=== PATIENT | female | born 1975 | race Caucasian/White ===

== ENCOUNTER 2017-09-12 18:19 | Emergency (ER) | payer BC, OTHER ==
[2017-09-12 18:26] VITALS: BP 106/62
[2017-09-12] MEDS ORDERED: predniSONE TAB* 20 MG PO ONE (18:55)
--- NOTE | 2017-09-12 19:00 | UC ---
Austin Ceron Nikita, scribed for Corrie Deutsch MD on 09/12/17 at 1847 . Skin Complaint HPI - HPI Summary HPI Summary: This patient is a 42 year old F presenting to [facility] with a chief complaint of hives since this morning. The pt reports she took a cold shower and 2 Benadryl which dissolved the hives, but they came back this evening. The CC is described as pruritic and occurring from her axilla to her buttocks and aching. The patient rates the pain 3/10 in severity. Symptoms aggravated by nothing. Symptoms alleviated by Benadryl (taken at 0700 and 1700). Patient reports chills and mid CP (heartburn, began this evening with dinner). Patient denies vomiting, diarrhea, throat swelling, tongue swelling, and difficulty breathing. Hx of hives (1st possibly from wool sweater and 2nd from poison oak). No known food allergies. - History of Current Complaint Chief Complaint: UCAllergicReaction Time Seen by Provider: 09/12/17 18:31 Stated Complaint: HIVES Hx Obtained From: Patient Hx Last Menstrual Period: Mirena IUD Onset/Duration: Sudden Onset, Resolved, Other - 2 episodes (one at 0700 which dissolved with a cold shower and Benadryl and another at 1700) Skin Exposure Onset/Duration: Hours Ago Onset Severity: Mild Current Severity: Mild Pain Intensity: 3 Pain Scale Used: 0-10 Numeric Location: Other - from her axilla to her buttocks Character: Pruritus, Hives Aggravating Factor(s): Nothing Alleviating Factor(s): OTC Meds - Benadryl Associated Signs & Symptoms: Positive: Chest Pain - Patient reports chills and mid CP (heartburn, began this evening with dinner). Patient denies vomiting, diarrhea, throat swelling, tongue swelling, and difficulty breathing. - Allergy/Home Medications Allergies/Adverse Reactions: Allergies Allergy/AdvReac Type Severity Reaction Status Date / Time No Known Allergies Allergy Verified 01/19/15 19:29 Review of Systems Constitutional: Chills Skin: Other - hives ENT: Other - denies throat swelling, tongue swelling Respiratory: Other - denies difficulty breathing Cardiovascular: Chest Pain - mid CP (heartburn); no risk factors for CAD aside from FH: generally healthy, normal cholesterol, non-smoker. Gastrointestinal: Other - denies vomiting, diarrhea, onset of reflux symptoms after eating this evening. Is Patient Immunocompromised?: No All Other Systems Reviewed And Are Negative: Yes PMH/Surg Hx/FS Hx/Imm Hx Endocrine History: Other Other Endocrine History: No DM Cardiovascular History: Other Other Cardiovascular History: No CAD, HTN, HLD Respiratory History: Other Other Respiratory History: No asthma, COPD - Surgical History Surgical History: None - Family History Known Family History: Positive: Cardiac Disease, Other Family History: pacemaker - Social History Alcohol Use: Weekly Substance Use Type: None Smoking Status (MU): Never Smoked Tobacco - Immunization History Most Recent Influenza Vaccination: 08/14/14 Most Recent Tetanus Shot: 07/11/14 Most Recent Pneumonia Vaccination: unknown Physical Exam Triage Information Reviewed: Yes Appearance: Well-Appearing, No Pain Distress Vital Signs: Initial Vital Signs Temp 98.4 F 09/12/17 18:21 Pulse 64 09/12/17 18:21 Resp 18 09/12/17 18:21 BP 106/62 09/12/17 18:21 Pulse Ox 100 09/12/17 18:21 Vital Signs Reviewed: Yes Eyes: Positive: Conjunctiva Clear ENT: Positive: Pharynx normal, TMs normal Neck: Positive: Supple, Nontender, No Lymphadenopathy Respiratory: Positive: Lungs clear, Normal breath sounds Cardiovascular: Positive: RRR, No Murmur Abdomen Description: Positive: Nontender, No Organomegaly Psychological Exam: Normal Skin Exam: Other - large urticarial plaques both axilla, scattered on trunk. Diagnostics - EKG Cardiac Rate: NL - taken at 0828; 66 bpm; normal axis Cardiac Rhythm: Sinus: Normal Ectopy: None ST Segment: Normal Course/Dx - Course Course Of Treatment: prednisone for suppression, discussed use of long acting antihistamine. - Differential Diagnoses - Skin Complaint Differential Diagnoses: Urticaria, Viral Exanthem - Diagnoses Provider Diagnoses: urticaria Discharge - Discharge Plan Condition: Stable Disposition: HOME Prescriptions: Prednisone [Deltasone] 20 mg PO BID #10 tab Patient Education Materials: Urticaria (ED) Referrals: Michelle Gonzalez MD [Primary Care Provider] - Additional Instructions: Begin use of prednisone for suppression of hives, which can come and go for several weeks. Begin use of a long acting antihistamine such as loratidine 10mg once daily ( not potent, but not sedating), fexofenadine 180mg once daily OR cetirazien 10mg once daily (more potent, more sedating.). You can use an H2 denny such as famotidine 20mg once daily --this will decrease stomach acid and also suppress hives. The documentation as recorded by the khushbuibAustin lin Nikita accurately reflects the service I personally performed and the decisions made by me, Corrie Deutsch MD.
== END 2017-09-12 19:12 | disposition home or self-care (01) ==
LOC: UCEAST 18:19
DX: L50.9 Urticaria, unspecified (principal)
CPT/HCPCS: 99212; G0463; J7512

== ENCOUNTER 2019-04-18 16:49 | Emergency (ER) | payer BC ==
[2019-04-18 16:57] VITALS: BP 143/74
== END 2019-04-18 18:11 | disposition left against medical advice (07) ==
LOC: UCEAST 16:49
DX: Z53.21 Procedure and treatment not carried out due to patient leaving prior to being seen by health care provider (principal)

== ENCOUNTER 2019-04-18 19:25 | Emergency (ER) | payer BC ==
[2019-04-18 19:39] VITALS: BP 114/70
--- NOTE | 2019-04-18 20:15 | UC ---
Throat Pain/Nasal Eddie HPI - HPI Summary HPI Summary: 43-year-old woman comes in with a chief complaint of 3 weeks of upper respiratory tract infection symptoms. Been having some runny nose initially started with a sore throat. Sore throats gone but now the rhinorrhea continues to including having some blood in her yellow-green rhinorrhea. Also feels fatigued. Activity makes the fatigue worse. Not being active makes the fatigue less. Does not feel like she has any chest congestion or wheezing. - History of Current Complaint Chief Complaint: UCGeneralIllness Stated Complaint: SINUSES,COUGH,FATIGUE Time Seen by Provider: 04/18/19 20:08 Hx Last Menstrual Period: 03/21/19 Pain Intensity: 3 - Allergies/Home Medications Allergies/Adverse Reactions: Allergies Allergy/AdvReac Type Severity Reaction Status Date / Time No Known Allergies Allergy Verified 04/18/19 19:39 PMH/Surg Hx/FS Hx/Imm Hx Previously Healthy: Yes - Surgical History Surgical History: None - Family History Known Family History: Positive: Cardiac Disease, Other Family History: pacemaker - Social History Alcohol Use: None Substance Use Type: None Smoking Status (MU): Never Smoked Tobacco - Immunization History Most Recent Influenza Vaccination: 08/14/14 Most Recent Tetanus Shot: 07/11/14 Most Recent Pneumonia Vaccination: unknown Review of Systems All Other Systems Reviewed And Are Negative: Yes Constitutional: Positive: Fatigue Skin: Positive: Negative Eyes: Positive: Negative ENT: Positive: Sore Throat, Nasal Discharge, Sinus Congestion, Sinus Pain/ Tenderness Respiratory: Positive: Other - see hpi Cardiovascular: Positive: Negative Gastrointestinal: Positive: Negative Motor: Positive: Negative Neurovascular: Positive: Negative Musculoskeletal: Positive: Negative Neurological: Positive: Negative Psychological: Positive: Negative Is Patient Immunocompromised?: No Physical Exam Triage Information Reviewed: Yes Appearance: No Pain Distress, Well-Nourished, Ill-Appearing - mild Vital Signs: Initial Vital Signs Temp 98.1 F 04/18/19 19:35 Pulse 82 04/18/19 19:35 Resp 18 04/18/19 19:35 BP 114/70 04/18/19 19:35 Pulse Ox 96 04/18/19 19:35 Vital Signs Reviewed: Yes Eye Exam: Normal Eyes: Positive: Conjunctiva Clear ENT: Positive: Pharyngeal erythema - mild, TMs normal, Sinus tenderness - maxillary. Negative: Tonsillar swelling, Tonsillar exudate Neck: Positive: Supple Respiratory: Positive: Lungs clear, Normal breath sounds, No respiratory distress Cardiovascular: Positive: RRR Musculoskeletal Exam: Normal Musculoskeletal: Positive: Strength Intact, ROM Intact Neurological Exam: Normal Neurological: Positive: Alert, Muscle Tone Normal Psychological Exam: Normal Psychological: Positive: Age Appropriate Behavior Skin Exam: Normal Throat Pain/Nasal Course/Dx - Differential Dx/Diagnosis Provider Diagnosis: Sinusitis Discharge - Sign-Out/Discharge Documenting (check all that apply): Patient Departure All imaging exams completed and their final reports reviewed: No Studies - Discharge Plan Condition: Stable Disposition: HOME Prescriptions: Amoxicillin/Clavulanate TAB* [Augmentin TAB 875*] 875 mg PO BID #20 tab Patient Education Materials: Sinusitis (ED) Referrals: Kirstie Lovelace MD [Primary Care Provider] - Additional Instructions: FOLLOW UP WITH YOUR DOCTOR IF NOT COMPLETELY IMPROVED. GET RECHECKED SOONER IF YOUR CONDITION WORSENS OR ANY QUESTIONS OR CONCERNS. - Billing Disposition and Condition Condition: STABLE Disposition: Home
== END 2019-04-18 20:15 | disposition home or self-care (01) ==
LOC: UCEAST 19:25
DX: J32.9 Chronic sinusitis, unspecified (principal); J02.9 Acute pharyngitis, unspecified
CPT/HCPCS: 99212; G0463

== ENCOUNTER 2019-07-05 14:55 | Emergency (ER) | payer BC ==
[2019-07-05 15:24] VITALS: BP 105/72
--- NOTE | 2019-07-05 16:11 | UC ---
Skin Complaint HPI - HPI Summary HPI Summary: Patient is a healthy 44-year-old female here with a rash. Patient woke up this morning with a generalized rash. Patient's rash is mildly itchy and nonpainful. Patient took Benadryl this morning with little relief. Patient has been exposed to her son who is been sick at home with sore throat, high fever. Patient finished an antibiotic yesterday she was taking for a UTI. Patient cannot remember the name of the antibiotic. Patient has no sore throat , fever, nasal congestion, vomiting, diarrhea, rectal bleeding, vaginal bleeding , dental bleeding. Medications reviewed - History of Current Complaint Chief Complaint: UCGeneralIllness Time Seen by Provider: 07/05/19 15:53 Stated Complaint: RASH Hx Obtained From: Patient Hx Last Menstrual Period: spotting everyday on new OBC Onset/Duration: Sudden Onset Pain Intensity: 2 - Allergy/Home Medications Allergies/Adverse Reactions: Allergies Allergy/AdvReac Type Severity Reaction Status Date / Time No Known Allergies Allergy Verified 07/05/19 15:24 Home Medications: Home Medications Levonorgestrel-Ethin Estradiol [Carina] 1 tab PO DAILY 07/05/19 [History Confirmed 07/05/19] PMH/Surg Hx/FS Hx/Imm Hx Previously Healthy: Yes - Surgical History Surgical History: None - Family History Known Family History: Positive: Cardiac Disease, Other, Non-Contributory Family History: pacemaker - Social History Alcohol Use: Weekly Substance Use Type: None Smoking Status (MU): Never Smoked Tobacco - Immunization History Most Recent Influenza Vaccination: 08/14/14 Most Recent Tetanus Shot: 07/11/14 Most Recent Pneumonia Vaccination: unknown Review of Systems All Other Systems Reviewed And Are Negative: Yes Constitutional: Negative: Fever, Chills Skin: Positive: Rash Eyes: Negative: Eye Redness ENT: Negative: Epistaxis, Dental Pain, Sore Throat, Ear Ache, Nasal Discharge Respiratory: Negative: Shortness Of Breath, Cough Cardiovascular: Negative: Palpitations, Chest Pain Gastrointestinal: Negative: Abdominal Pain, Vomiting, Diarrhea Genitourinary: Negative: Dysuria, Hematuria Neurological: Negative: Headache Physical Exam - Summary Physical Exam Summary: Vital Signs Reviewed: Yes A+Ox3, no distress Eyes: Conjunctiva Clear, PERRL. EOM intact and full ENT: Hearing grossly normal TM x 2 clear, moist, uvula midline, no exudate, no erythema Neck: Positive: Supple Respiratory: Positive: No respiratory distress, No accessory muscle use + CTA throughout no w/r Cardiovascular: RRR nl s1, s2 no m/r CBT <2 sec abd soft + BS nt/nd no guarding, no distension Musculoskeletal Exam: BREWSTER x 4 without difficulty Strength Intact, ROM Intact Neurological: Positive: Alert, + sensation throughout Psychological: Positive: Normal Response To Family Skin: Diffuse rash on all extremities and trunk. Rashes are pinpoint erythematous papules that are blanching. No oral lesions. No lesions on the palms or soles. Triage Information Reviewed: Yes Vital Signs: Initial Vital Signs Temp 98.4 F 07/05/19 15:17 Pulse 65 07/05/19 15:17 Resp 16 07/05/19 15:17 BP 105/72 07/05/19 15:17 Pulse Ox 100 07/05/19 15:17 Course/Dx - Course Course Of Treatment: Patient is here with a generalized, pruritic rash. Patient's rash is not petechial in nature. Patient has no oral lesions and is clinically well- appearing with no fever, no tachycardia. Patient is likely suffering from a viral exanthem after being exposed from her son versus a drug eruption. Patient has no other symptoms consistent with Dorsey-Yobany syndrome or dress. Patient was given likely discussion on return percussions to the emergency department and was well aware of what to look for. - Differential Diagnoses - Skin Complaint Differential Diagnoses: Contact Dermatitis, Drug Rash, Eczema, Dorsey-Yobany Syndrome, Viral Exanthem - Diagnoses Provider Diagnosis: Generalized rash Discharge - Sign-Out/Discharge Documenting (check all that apply): Patient Departure All imaging exams completed and their final reports reviewed: No Studies - Discharge Plan Condition: Stable Disposition: HOME Patient Education Materials: Acute Rash (ED) Referrals: Kirstie Lovelace MD [Primary Care Provider] - Additional Instructions: Please go to the emergency department if you have rash in her mouth, any sloughing of skin (like the picture I showed you), fever, headache, bleeding. You can use Benadryl as needed for itching - Billing Disposition and Condition Condition: STABLE Disposition: Home
== END 2019-07-05 16:19 | disposition home or self-care (01) ==
LOC: UCEAST 14:55
DX: R21 Rash and other nonspecific skin eruption (principal)
CPT/HCPCS: 99211; G0463

== ENCOUNTER 2019-08-13 18:50 | Emergency (ER) | payer BC ==
[2019-08-13 19:12] VITALS: BP 111/73
--- NOTE | 2019-08-13 19:34 | UC ---
Skin Complaint HPI - HPI Summary HPI Summary: concerned she may have scabies---itchy rash that is worse at night--works in a [employer] and has a new intimant partner-who does not have a similar rash - History of Current Complaint Chief Complaint: UCSkin Time Seen by Provider: 08/13/19 19:19 Stated Complaint: RASH Hx Obtained From: Patient Hx Last Menstrual Period: control ?: No Onset/Duration: Gradual Onset, Lasting Weeks - 8, Still Present Timing: Constant Pain Intensity: 0 Pain Scale Used: 0-10 Numeric Location: Diffuse Character: Redness Aggravating Factor(s): Nothing Alleviating Factor(s): Nothing Associated Signs & Symptoms: Positive: Negative - Allergy/Home Medications Allergies/Adverse Reactions: Allergies Allergy/AdvReac Type Severity Reaction Status Date / Time Sulfa (Sulfonamide Allergy Rash Verified 08/13/19 19:13 Antibiotics) PMH/Surg Hx/FS Hx/Imm Hx Previously Healthy: Yes - Surgical History Surgical History: None - Family History Known Family History: Positive: Cardiac Disease, Other, Non-Contributory Family History: pacemaker - Social History Occupation: Employed Full-time Lives: With Family Alcohol Use: Weekly Substance Use Type: None Smoking Status (MU): Never Smoked Tobacco - Immunization History Most Recent Influenza Vaccination: 08/14/14 Most Recent Tetanus Shot: 07/11/14 Most Recent Pneumonia Vaccination: unknown Review of Systems All Other Systems Reviewed And Are Negative: Yes Constitutional: Positive: Negative Skin: Positive: Rash Eyes: Positive: Negative ENT: Positive: Negative Respiratory: Positive: Negative Cardiovascular: Positive: Negative Gastrointestinal: Positive: Negative Genitourinary: Positive: Negative Motor: Positive: Negative Neurovascular: Positive: Negative Musculoskeletal: Positive: Negative Neurological: Positive: Negative Psychological: Positive: Negative Is Patient Immunocompromised?: No Physical Exam Triage Information Reviewed: Yes Appearance: Well-Appearing, No Pain Distress, Well-Nourished Vital Signs: Initial Vital Signs Temp 99.3 F 08/13/19 19:06 Pulse 75 08/13/19 19:06 Resp 16 08/13/19 19:06 BP 111/73 08/13/19 19:06 Pulse Ox 99 08/13/19 19:06 Vital Signs Reviewed: Yes Eye Exam: Normal Eyes: Positive: Conjunctiva Clear ENT Exam: Normal ENT: Positive: Normal ENT inspection, Hearing grossly normal. Negative: Trismus , Muffled voice, Hoarse voice Dental Exam: Normal Neck exam: Normal Neck: Positive: Supple, Nontender Respiratory Exam: Normal Respiratory: Positive: Chest non-tender, No respiratory distress, No accessory muscle use Cardiovascular Exam: Normal Cardiovascular: Positive: RRR, Pulses Normal, Brisk Capillary Refill Musculoskeletal Exam: Normal Musculoskeletal: Positive: Strength Intact, ROM Intact, No Edema Neurological Exam: Normal Neurological: Positive: Alert, Muscle Tone Normal Psychological Exam: Normal Skin: Positive: Other - patches of itchy red rash-- Course/Dx - Course Course Of Treatment: will treat with premetherin followed by steroid cream---follow with pcp - Diagnoses Provider Diagnosis: Scabies Discharge ED - Sign-Out/Discharge Documenting (check all that apply): Patient Departure All imaging exams completed and their final reports reviewed: No Studies - Discharge Plan Condition: Stable Disposition: HOME Prescriptions: Permethrin 5% CREAM* 1 applic TOPICAL SEE INSTRUCTIONS #60 gm predniSONE [Prednisone 20 MG TAB] 20 mg PO DAILY #12 tablet Patient Education Materials: Diphenhydramine (By mouth), Contact Dermatitis (ED ) Referrals: Kirstie Lovelace MD [Primary Care Provider] - If Needed - Billing Disposition and Condition Condition: STABLE Disposition: Home
== END 2019-08-13 19:50 | disposition home or self-care (01) ==
LOC: UCEAST 18:50
DX: R21 Rash and other nonspecific skin eruption (principal); Z88.2 Allergy status to sulfonamides
CPT/HCPCS: 99212; G0463

== ENCOUNTER 2019-11-18 18:50 | Emergency (ER) | payer BC ==
[2019-11-18 18:58] VITALS: BP 131/87
--- NOTE | 2019-11-18 19:22 | UC ---
Complaint Female HPI - HPI Summary HPI Summary: patient has some pelvic pressure-odorous and cloudy for 1 week--thinks she may have a uti as this has happened before and it turned in to a uti----no vaginal discharge - History Of Current Complaint Chief Complaint: UCGU Stated Complaint: BURNING URINATION Time Seen by Provider: 11/18/19 18:53 Hx Obtained From: Patient Hx Last Menstrual Period: on control ?: No Onset/Duration: Sudden Onset, Lasting Weeks - 1, Still Present Timing: Constant Pain Intensity: 3 Pain Scale Used: 0-10 Numeric Aggravating Factor(s): Nothing Associated Signs And Symptoms: Positive: Negative - Allergies/Home Medications Allergies/Adverse Reactions: Allergies Allergy/AdvReac Type Severity Reaction Status Date / Time Sulfa (Sulfonamide Allergy Rash Verified 11/18/19 18:58 Antibiotics) PMH/Surg Hx/FS Hx/Imm Hx Previously Healthy: Yes - Surgical History Surgical History: None - Family History Known Family History: Positive: Cardiac Disease, Other, Non-Contributory Family History: pacemaker - Social History Occupation: Employed Full-time Lives: With Family Alcohol Use: Daily Substance Use Type: None Smoking Status (MU): Never Smoked Tobacco - Immunization History Most Recent Influenza Vaccination: 08/14/14 Most Recent Tetanus Shot: 07/11/14 Most Recent Pneumonia Vaccination: unknown Review of Systems All Other Systems Reviewed And Are Negative: Yes Constitutional: Positive: Negative Skin: Positive: Negative Eyes: Positive: Negative ENT: Positive: Negative Respiratory: Positive: Negative Cardiovascular: Positive: Negative Gastrointestinal: Positive: Negative Genitourinary: Positive: Other - odor and cloudy urine Motor: Positive: Negative Neurovascular: Positive: Negative Musculoskeletal: Positive: Negative Neurological: Positive: Negative Psychological: Positive: Negative Is Patient Immunocompromised?: No Physical Exam Triage Information Reviewed: Yes Appearance: Well-Appearing, No Pain Distress, Well-Nourished Vital Signs: Initial Vital Signs Temp 97.5 F 11/18/19 18:55 Pulse 69 11/18/19 18:55 Resp 16 11/18/19 18:55 BP 131/87 11/18/19 18:55 Pulse Ox 100 11/18/19 18:55 Vital Signs Reviewed: Yes Eye Exam: Normal Eyes: Positive: Conjunctiva Clear ENT Exam: Normal ENT: Positive: Normal ENT inspection, Hearing grossly normal. Negative: Trismus , Muffled voice, Hoarse voice Dental Exam: Normal Neck exam: Normal Neck: Positive: Supple, Nontender, No Lymphadenopathy Respiratory Exam: Normal Respiratory: Positive: Chest non-tender, Lungs clear, Normal breath sounds, No respiratory distress, No accessory muscle use Cardiovascular Exam: Normal Cardiovascular: Positive: RRR, No Murmur, Pulses Normal, Brisk Capillary Refill Abdominal Exam: Normal Abdomen Description: Positive: Nontender, No Organomegaly, Soft. Negative: CVA Tenderness (R), CVA Tenderness (L), Distended, McBurney's Point Tenderness Bowel Sounds: Positive: Present Musculoskeletal Exam: Normal Musculoskeletal: Positive: Strength Intact, ROM Intact, No Edema Neurological Exam: Normal Neurological: Positive: Alert, Muscle Tone Normal Psychological Exam: Normal Skin Exam: Normal Diagnostics - Laboratory Lab Results: ua wnl sg 1.025 Complaint Female Dx - Course Course Of Treatment: encourage fluids, return for worsening or continuing symptoms- - Differential Dx/Diagnosis Provider Diagnosis: Foul smelling urine Discharge ED - Sign-Out/Discharge Documenting (check all that apply): Patient Departure All imaging exams completed and their final reports reviewed: No Studies - Discharge Plan Condition: Stable Disposition: HOME Patient Education Materials: Dehydration (ED), Abdominal Pain (ED) Referrals: Kirstie Lovelace MD [Primary Care Provider] - 3 Days - Billing Disposition and Condition Condition: STABLE Disposition: Home
== END 2019-11-18 19:30 | disposition home or self-care (01) ==
LOC: UCEAST 18:50
DX: R82.998 Other abnormal findings in urine (principal)
CPT/HCPCS: 81003; 84702; 99211; G0463

== ENCOUNTER 2020-02-06 14:10 | Emergency (ER) | payer BC ==
--- OUTSIDE RECORDS SUMMARY | 2020-02-06 14:17 | XMS REPORT | Summary of Care ---
:[address] [facility] Address [address] [place] [address] Care Team Providers Name Role Phone Kirstie Lovelace Primary Care Provider Reason for Visit Reason Comments Physical pap 10/11/17, mammo 08/30/18, no dexa or colonoscopy Gynecologic Exam Encounter Details Date Type Department Care Team Description 01/26/2020 Office Visit [facility] Kirstie Lovelace MD Routine general medical examination at a health care facility (Primary Dx); Medicine [address] Encounter for screening breast examination; [address] [place] [address] Encounter for contraceptive management, unspecified type; [place] [address] Need for vaccination; [phone] Screening mammogram, encounter for; (Fax) Encounter for gynecological examination without abnormal finding Allergies Active Allergy Reactions Severity Noted Date Comments No Known Drug Allergy Other 01/18/2008 Sulfa Antibiotics Dermatologic Reaction 11/21/2019 Rash on entire body documented as of this encounter (statuses as of 01/26/2020) Medications Medication Sig Dispensed Refills Start Date End Date Status Levonorgestrel-Ethi Take 1 Tab 28 Tab 11 01/26/2020 Active nyl Estrad by mouth (TETE) 90-20 DAILY. MCG Oral TabIndications: Encounter for contraceptive management, unspecified type Levonorgestrel-Ethi Take 1 Tab 28 Tab 6 06/26/2019 Discontinued nyl Estrad by mouth 0 (Reorder) (TETE) 90-20 DAILY. MCG Oral TabIndications: Encounter for contraceptive management, unspecified type documented as of this encounter (statuses as of 01/26/2020) Active Problems Problem Noted Date Encounter for contraceptive management 03/29/2018 Depression 05/21/2015 Overview: On celexa- 3 weeks ( 05/06) - Prescribed by Leah Villalobos NP documented as of this encounter (statuses as of 01/26/2020) Immunizations Name Administration Dates Next Due Influenza (IM) Preservative Free 09/18/2013 TDAP Vaccine 01/26/2020 documented as of this encounter Social History Tobacco Use Types Packs/Day Years Used Date Never Smoker Smokeless Tobacco: Never Used Tobacco Cessation: Counseling Given: No Alcohol Use Drinks/Week oz/Week Comments Yes 0 Standard drinks or equivalent 0.0 OCCAS Sex Assigned at Date Recorded Not on file Travel History Travel Start Travel End [place] 12/31/2019 01/12/2020 documented as of this encounter Last Filed Vital Signs Vital Sign Reading Time Taken Comments Blood Pressure 140/86 01/26/2020 10:54 AM EST Pulse 61 01/26/2020 10:54 AM EST Temperature 36.6 01/26/2020 10:54 AM EST C (97.8 F) Respiratory Rate - - Oxygen Saturation 99% 01/26/2020 10:54 AM EST Inhaled Oxygen Concentration - - Weight 63 kg (138 lb 14.4 oz) 01/26/2020 10:54 AM EST Height 164.5 cm (5' 4.75") 01/26/2020 10:54 AM EST Body Mass Index 23.29 01/26/2020 10:54 AM EST documented in this encounter Patient Instructions Patient InstructionsKirstie Lovelace MD - 01/26/2020 11:[facility] 1. Take 1000- mg of Calcium/day divided dose and with a meal (better absorbed with fat ( calcium best out of The diet - Dairy - [place] ( in the can best) sardines) some vegetables -For example cabbage and partcularly bok gomes 2. Take 800- IU Vit D in the form of cholecalficerol (D3). Avoid ergocalciferol (not absorbed well) 3. Weight bearing exercize (walking, etc.) and strength training 4. Daily exposure to sunlight (though not enought to turn skin pink) 5. I recommend visiting the following web site for more information on Vit D supplementation http://www.vitaminZeta Interactive.[employer]/vitaminDPharmacology.shtml documented in this encounter Progress Notes Kirstie Lovelace MD - 01/26/2020 11:20 AM EST PATIENT: Pretty Temple DATE: 01/26/2020 Pretty Temple is a 44-y.o. female presents for routine physical exam and Also, she has additional complaints of . Patient Active Problem List Diagnosis ? Depression ? Encounter for contraceptive management Exercize yes No SON. No cardiopulmonary symptoms as dyspnea, cough. palpitations , or chest pain on exertion. No upper or lower GI complaints as heartburn, abdominal pain, change in bowel habits, blackor bloody stools. No urinary tract symptoms or incontinence. No symptoms as nocturia, discharge No bruising/ bleeding. No neurological complaints as dysphagia, imbalance, vertigo , focal weakness. No insomnia.+ Rested after nights sleep. No depression. Does not stop breathing at night. Current Outpatient Medications Medication Sig ? Levonorgestrel-Ethinyl Estrad (TETE) 90-20 MCG Oral Tab Take 1 Tab by mouth DAILY. No current facility-administered medications for this visit. Social History Socioeconomic History ? Marital status: Single Spouse name: Not on file ? Number of children: Not on file ? Years of education: Not on file ? Highest education level: Not on file Occupational History ? Not on file Social Needs ? Financial resource strain: Not on file ? Food insecurity Worry: Not on file Inability: Not on file ? Transportation needs Medical: Not on file Non-medical: Not on file Tobacco Use ? Smoking status: Never Smoker ? Smokeless tobacco: Never Used Substance and Sexual Activity ? Alcohol use: Yes Alcohol/week: 0.0 standard drinks Comment: OCCAS ? Drug use: Not on file ? Sexual activity: Not on file Lifestyle ? Physical activity Days per week: Not on file Minutes per session: Not on file ? Stress: Not on file Relationships ? Social connections Talks on phone: Not on file Gets together: Not on file Attends gnosticism service: Not on file Active member of club or organization: Not on file Attends meetings of clubs or organizations: Not on file Relationship status: Not on file ? Intimate partner violence Fear of current or ex partner: Not on file Emotionally abused: Not on file Physically abused: Not on file Forced sexual activity: Not on file Other Topics Concern ? Back Care Not Asked ? Bike Helmet Not Asked ? Blood Transfusions Not Asked ? Caffeine Concern Not Asked ? Exercise Not Asked ? Hobby Hazards Not Asked ? International Travel Not Asked ? Service Not Asked ? Occupational Exposure Not Asked ? Seat Belt Not Asked ? Self-Exams Not Asked ? Sleep Concern Not Asked ? Special Diet Not Asked ? Stress Concern Not Asked ? 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 Hypertension Unknown MOTHER ? High Cholesterol Unknown FATHER ? Stroke Unknown grandfather ? Heart Unknown [place] grandfather ? Breast Cancer, additional onset Maternal Aunt OBJECTIVE: BP 140/86 | Pulse 61 | Temp 97.8 F (36.6 C) | Ht 5' 4.75" (1.645 m) | Wt 138 lb 14.4 oz (63 kg) | LMP (LMP Unknown) | SpO2 99% | BMI 23.29 kg/m Gen well Heent: ears TM and canals normal eyes Perrl; EOMI oroph-wnl Neck- no JVD,thyromegaly, bruit or lymphademopathy No supraclavicular, axillary or inguinal lymphadenopathy Lungs-clear to auscultation CV RRR no Murmur, gallop or clilck Breasts-no masses or diimpling (examined supine and sitting) Abd. nontender; no organomegaly, abnormal pulsations , bowel sounds normoactive urethra/ vul/vag neg; cervix wnl; uterus wnl, adnexa-unabl eehin prep Rectal no mass heme ANus no path Ext-no edema; rash, DP +2 skin- no rashes or suspicious lesions Neuro- intellect intact; CN II.XII intact; U&LE-strength wnl gait nl A/P ICD-9-CM ICD-10-CM 1. Routine general medical examination at a health care facility V70.0 Z00.00 CANCELED: CBC WITH DIFFERENTIAL CANCELED: THYROID STIMULATING HORMONE CANCELED: LIPID PROFILE CANCELED: BASIC METABOLIC PANEL 2. Encounter for screening breast examination V76.10 Z12.39 3. Encounter for contraceptive management, unspecified type V25.9 Z30.9 Levonorgestrel-Ethinyl Estrad (TETE) 90-20 MCG Oral Tab CANCELED: CBC WITH DIFFERENTIAL CANCELED: THYROID STIMULATING HORMONE CANCELED: LIPID PROFILE CANCELED: BASIC METABOLIC PANEL 4. Need for vaccination V05.9 Z23 OR TET, DIP & ACEL PERTUSSIS(DX Z23) 5. Screening mammogram, encounter for V76.12 Z12.31 MAMMO SCREENING TOMOSYNTHESIS BILATERAL 6. Encounter for gynecological examination without abnormal finding V72.31 Z01.419 PAP SMEAR THINPREP AND HPV Breast self-exam and bone health recommendations were made Chief Complaint Patient presents with ? Physical pap 10/11/17, mammo 08/30/18, no dexa or colonoscopy ? Gynecologic Exam Mammo-- ordered DT PAP Today Patient Instructions Bone health: 1. Take 1000- mg of Calcium/day divided dose and with a meal ( better absorbed with fat ( calcium best out of The diet - Dairy - [place] ( in the can best) sardines) some vegetables -For example cabbage and partcularly bok gomes 2. Take 800- IU Vit D in the form of cholecalficerol (D3). Avoid ergocalciferol (not absorbed well) 3. Weight bearing exercize (walking, etc.) and strength training 4. Daily exposure to sunlight (though not enought to turn skin pink) 5. I recommend visiting the following web site for more information on Vit D supplementation http://www.vitaminZeta Interactive.[employer]/vitaminDPharmacology.shtml Author: Kirstie Lovelace MD documented in this encounter Plan of Treatment Name Type Priority Associated Diagnoses Order Schedule MAMMO SCREENING Imaging Routine Screening mammogram, Expected: TOMOSYNTHESIS BILATERAL encounter for 01/26/2020, Expires: 04/25/2021 PAP SMEAR THINPREP AND Lab Routine Encounter for Ordered: 01/26/2020 HPV gynecological examination without abnormal finding Health Maintenance Due Date Last Done Comments DTaP/Tdap/Td Vaccines ( - 1985 Tdap) LIPID DISORDER SCREENING 01/26/2018 01/26/2013, 01/19/2008 MAMMOGRAM (SCREENING) 08/30/2019 08/30/2018 DEPRESSION SCREENING 06/26/2020 06/26/2019 PAP SMEAR 10/11/2020 10/11/2017, 01/24/2013, 01/24/2013, Additional history exists INFLUENZA VACCINE (#1) 2021 09/18/2013 Postponed from 07/23/2019 (Patient refused) HEPATITIS A IMMUNIZATION Aged Out No longer eligible SERIES based on patient's age to complete this topic HPV IMMUNIZATION SERIES Aged Out No longer eligible based on patient's age to complete this topic MENINGOCOCCAL VACCINE IMM Aged Out No longer eligible based on patient's age to complete this topic PNEUMOCOCCAL 0-64 YRS Aged Out No longer eligible based on patient's age to complete this topic documented as of this encounter Goals Goal Patient Goal Associated Recent Patient-Stated? Author Type Problems Progress Depression Depression No dena Lovelace (PHQ-9) MD Kirstie total score < 5 Note: This is an individualized treatment (depression) goal for Pretty Carlos: Displayed above is your goal for a depression screening (PHQ-9) score that would indicate good control of your depression. Keep a regular sleep schedule Lifestyle No Kirstie Lovelace MD Note: This is an individualized lifestyle goal for Pretty Carlos: Please maintain a regular sleep schedule. This may help with some symptoms of depression. Take all prescribed medications as directed Self-management No Kirstie Lovelace MD Note: This is an individualized self-management goal for Pretty Carlos: Please take all prescribed medications as directed. 1. Do not skip doses. If you cannot afford your medications, talk with your doctor. 2. Use a pill reminder system such as a pill box if needed. Your pharmacist can help you with this. 3. Contact your Pharmacy 5 days before your medication runs out. If you cannot take your medications for any reasons, talk with your doctor. 4. Please bring all of your medication bottles and inhalers (or a list of all your medications/inhalers) with you to every visit. Potential barriers to meeting all of your care plan goals will continue to be addressed on an ongoing basis. documented as of this encounter Results Not on filedocumented in this encounter Visit Diagnoses Diagnosis Encounter for contraceptive management, unspecified type Encounter for screening breast examination Need for vaccination Need for prophylactic vaccination and inoculation against unspecified single disease documented in this encounter Insurance Payer Benefit Plan / Subscriber ID Effective Dates Phone Address Type Group [employer] [id number] 2017-Present [employer] PPO Guarantor Name Account Type Relation to Date of Phone Billing Address Patient Pretty Temple Personal/Famil 1975 [address] [phone] [place], [place] (Work) [id number] documented as of this encounter
--- NOTE | 2020-02-06 14:19 | UC ---
Cardiac HPI - HPI Summary HPI Summary: 44 yo female presents with chest pain and feeling short of breath. She tells me that this morning around 0600 she woke up and felt substernal chest pain that was mild and feeling that she cannot take a deep breath. She went to work and while walking around noted increased SOB and ENCINAS - then noticed some pain in the middle of her shoulder blades. These symptoms have been persistent until now. Present at rest. She has not taken anything OTC for her symptoms. Denies recent illness, headache, dizziness, abdominal pain, n/v, dysuria. Denies hx of cardiac or pulm issues. She returned via plane from [place] on 01/12. No known exposure to positive COVID. She does not smoke. - History of Current Complaint Stated Complaint: SHORT OF BREATH CHEST TIGHTNESS Time Seen by Provider: 02/06/20 14:18 Hx Obtained From: Patient Hx Last Menstrual Period: on control Onset/Duration: Sudden Onset Initial Severity: Mild Current Severity: Mild Pain Intensity: 3 - Allergy/Home Medications Allergies/Adverse Reactions: Allergies Allergy/AdvReac Type Severity Reaction Status Date / Time Sulfa (Sulfonamide Allergy Rash Verified 02/06/20 18:30 Antibiotics) Home Medications: Home Medications Levonorgestrel-Ethin Estradiol [Carina 90-20 Mcg Tablet] 1 tab PO DAILY [History Confirmed 02/06/20] Ibuprofen TAB* [Advil TAB*] 400 mg PO Q6HR PRN 02/06/20 [History Confirmed 02/05] PMH/Surg Hx/FS Hx/Imm Hx - Additional Past Medical History Additional PMH: None - Surgical History Surgical History: None - Family History Known Family History: Positive: Cardiac Disease Family History: pacemaker - Social History Occupation: Employed Full-time Lives: With Family Alcohol Use: Daily Substance Use Type: None Smoking Status (MU): Never Smoked Tobacco - Immunization History Most Recent Influenza Vaccination: 08/14/14 Most Recent Tetanus Shot: 07/11/14 Most Recent Pneumonia Vaccination: unknown Review of Systems All Other Systems Reviewed And Are Negative: No Constitutional: Positive: Negative Skin: Positive: Negative Eyes: Positive: Negative ENT: Positive: Negative Respiratory: Positive: Shortness Of Breath Cardiovascular: Positive: Chest Pain Gastrointestinal: Positive: Negative Genitourinary: Positive: Negative Neurological/Mental Status: Positive: Negative Psychological: Positive: Negative Physical Exam - Summary Physical Exam Summary: GENERAL: NAD. WDWN. No pain distress. SKIN: No rashes, sores, or open wounds. HEENT: Head: AT/NC Eyes: PERRLA. EOM intact. Conjunctiva clear without inflammation or discharge. Ears: Hearing grossly normal. TMs intact, no bulging, erythema, or edema. Nose: Nasal mucosa pink and moist. NTTP maxillary and frontal sinus. Throat: Posterior oropharynx without exudates, erythema, or tonsillar enlargement. Uvula midline. NECK: Supple. Nontender. No lymphadenopathy. CHEST: CTAB. No r/r/w. No accessory muscle use. Breathing comfortably and in no distress. CV: RRR. Pulses intact. Brisk cap refill. ABDOMEN: Soft. NTTP. No distention or guarding. No CVA tenderness. Bowel sounds present NEURO: Alert. PSYCH: Age appropriate behavior. Triage Information Reviewed: Yes Vital Signs: Vital Signs: Temp Pulse Resp BP Pulse Ox 99.9 F 59 16 138/88 100 02/06/20 14:39 02/06/20 14:39 02/06/20 14:39 02/06/20 14:39 02/06/20 14:39 Vital Signs Reviewed: Yes Diagnostics - EKG Summary of EKG Findings: 60bpm NSR. No STEMI as read by Dr. Newton. - Assessment/Plan Course Of Treatment: EKG as above. She had recent plane travel and takes OBC with ENCINAS/SOB and chest pain - concern for PE vs ACS today. Recommended pt go to ED for further eval - she was agreeable to this, but declined ambulance transfer. - Clinical Impression Provider Diagnosis: Chest pain, SOB (shortness of breath) Discharge ED - Sign-Out/Discharge Documenting (check all that apply): Patient Departure All imaging exams completed and their final reports reviewed: No Studies - Discharge Plan Condition: Stable Disposition: HOME-RECOMMEND TO ED Referrals: Kirstie Lovelace MD [Primary Care Provider] - Additional Instructions: Please go to the ER for further evaluation of your chest pain and shortness of breath with recent travel - Billing Disposition and Condition Condition: STABLE Disposition: Home-Recommend to ED - Attestation Statements Provider Attestation: This patient was not sen by me. I was available for consult Chart reviewed JLD My shift ended at 1430
[2020-02-06 14:48] VITALS: BP 138/88
== END 2020-02-06 15:00 | disposition home health service (06) ==
LOC: UCEAST 14:10
DX: R06.02 Shortness of breath (principal); R07.9 Chest pain, unspecified; Z88.2 Allergy status to sulfonamides
CPT/HCPCS: 93005; 99211; G0463

== ENCOUNTER 2020-02-06 15:34 | Emergency (ER) | payer BC ==
[2020-02-06 17:24] LABS: ABS Basophils 0.1 10^3/ul (0-0.2); ABS Eosinophils 0.1 10^3/ul (0-0.6); ABS Lymphocytes 2.1 10^3/ul (1.0-4.8); ABS Monocytes 0.5 10^3/ul (0-0.8); ABS Neutrophils 4.5 10^3/ul (1.5-7.7); Eosinophil % 1.2 %; Hematocrit 36 % (35-47); Hemoglobin 12.3 g/dL (12.0-16.0); Mean Corpuscular HGB Conc 34 g/dL (31-36); Mean Corpuscular Hemoglobin 31 pg (27-31); Mean Corpuscular Volume 90 fL (80-97); Mean Platelet Volume 9.4 fL (7.4-10.4); Platelet Count 201 10^3/uL (150-450); Red Blood Count 3.97 10^6 /uL (3.70-4.87); Red Cell Distribution Width 13 % (10-15); White Blood Count 7.2 10^3/uL (3.5-10.8)
[2020-02-06 17:43] LABS: ALT 12 U/L (7-52); AST 15 U/L (13-39); Albumin 3.8 g/dL (3.2-5.2); Albumin/Globulin Ratio 1.2 (1-3); Alkaline Phosphatase 55 U/L (34-104); Anion Gap 7 mmol/L (2-11); BUN/Creatinine Ratio 20.8 (8-20); Blood Urea Nitrogen 21 mg/dL (6-24); CO2 Carbon Dioxide 28 mmol/L (22-32); Calcium 9.2 mg/dL (8.6-10.3); Chloride 103 mmol/L (101-111); EGFR African American 71.7 (>60); EGFR Non-African American 59.3 (>60); Globulin 3.3 g/dL (2-4); Glucose 92 mg/dL (70-100); Potassium 3.8 mmol/L (3.5-5.0); Sodium 138 mmol/L (135-145); Total Protein 7.1 g/dL (6.4-8.9)
[2020-02-06 17:46] LABS: Troponin I 0.01 ng/mL (<0.03)
[2020-02-06 17:49] LABS: HCG Pregnancy < 0.60 mIU/mL
[2020-02-06] MEDS ORDERED: Al Hydrox/Mg Hydrox/Simet LIQ* 30 ML UDC PO ONE (18:23)
[2020-02-06] MEDS ORDERED: Lidocaine 2% VISCOUS* 15 ML UDC PO ONE (18:23)
--- NOTE | 2020-02-06 18:23 | ED ---
HPI Chest Pain - HPI Summary HPI Summary: Patient complains of sudden onset chest tightness/pressure starting at 6 AM this morning with associated exertional shortness of breath through the day. Seen at urgent care and sent to the ED for further evaluation. Patient is a regular runner though she has not run for 3 weeks. Denies prior history of same symptoms. Chest pain described as substernal, constant tightness since 6 AM with intermittent episodes of sharp pain lasting seconds, at worst 6/10, currently 4/10. States pain is also worse with eating, and radiates to her back between her shoulder blades. Denies radiation to arms or neck or jaw. Denies trauma, fever, cough, sore throat, and/V/D, abdominal pain, change in urine, change in BM. Medical history is none. Patient had recent physical without blood work. No physical prior for 2 years. Nonsmoker. Positive family cardiac history, mother had UT at 58. Taking OCP. Denies prior history of blood clots, recent surgery or trauma, unilateral leg pain, hemoptysis, cancer. Did travel from [place] to on 01/12. - History of Current Complaint Chief Complaint: EDChestPainROMI Time Seen by Provider: 02/06/20 17:44 Hx Obtained From: Patient Hx Last Menstrual Period: on control Onset/Duration: Started Hours Ago Timing: Intermittent, Lasting Hours Initial Severity: Moderate Current Severity: Moderate Pain Intensity: 5 Pain Scale Used: 0-10 Numeric Chest Pain Location: Mid Sternal Chest Pain Radiates: Yes Chest Pain Radiates To:: Back Character: Pressure/Squeezing, Tightness Aggravating Factor(s): Exertion Alleviating Factor(s): Rest Associated Signs and Symptoms: Positive: Chest Pain, Anxiety, Shortness of Breath, Back Pain - Risk Factors Pulmonary Embolism Risk Factors: Oral Contraceptives, Recent Travel - Allergy/Home Medications Allergies/Adverse Reactions: Allergies Allergy/AdvReac Type Severity Reaction Status Date / Time Sulfa (Sulfonamide Allergy Rash Verified 02/06/20 18:30 Antibiotics) Home Medications: Home Medications Levonorgestrel-Ethin Estradiol [Carina 90-20 Mcg Tablet] 1 tab PO DAILY [History Confirmed 02/06/20] Ibuprofen TAB* [Advil TAB*] 400 mg PO Q6HR PRN 02/06/20 [History Confirmed 02/05] PMH/Surg Hx/FS Hx/Imm Hx Endocrine/Hematology History: Denies: Hx Diabetes, Hx Thyroid Disease Cardiovascular History: Denies: Hx Hypertension Respiratory History: Denies: Hx Asthma, Hx Chronic Obstructive Pulmonary Disease (COPD) GI History: Denies: Hx Ulcer Musculoskeletal History: Denies: Hx Rheumatoid Arthritis, Hx Osteoporosis Sensory History: Denies: Hx Eye Prosthesis Opthamlomology History: Denies: Hx Legally Blind EENT History: Denies: Hx Deafness Psychiatric History: Denies: Hx Eating Disorder, Hx of Violent Episodes Against Others - Surgical History Surgery Procedure, Year, and Place: knee surgery 1989 Infectious Disease History: No Infectious Disease History: Reports: Traveled Outside the [place] in Last 30 Days - [employer] Denies: Hx Clostridium Difficile, Hx Hepatitis, Hx Human Immunodeficiency Virus (HIV), Hx of Known/Suspected MRSA, Hx Shingles, Hx Tuberculosis, Hx Known/ Suspected VRE, Hx Known/Suspected VRSA, History Other Infectious Disease - Family History Known Family History: Positive: Cardiac Disease, Other, Non-Contributory Family History: pacemaker - Social History Alcohol Use: Daily Substance Use Type: Reports: None Smoking Status (MU): Never Smoked Tobacco Review of Systems Constitutional: Negative Eyes: Negative ENT: Negative Positive: Chest Pain Positive: Shortness Of Breath Gastrointestinal: Negative Genitourinary: Negative Musculoskeletal: Negative Skin: Negative Neurological/Mental Status: Negative Psychological: Normal All Other Systems Reviewed And Are Negative: Yes Physical Exam - Summary Physical Exam Summary: Sternal chest pain mildly reproducible. Lung sounds clear to auscultation bilaterally. Abdomen soft nontender. No pain with palpation of neck, spine, paraspinal muscles. Triage Information Reviewed: Yes Vital Signs On Initial Exam: Initial Vitals Temp Pulse Resp BP Pulse Ox 98.8 F 63 16 140/88 98 02/06/20 15:52 02/06/20 15:52 02/06/20 15:52 02/06/20 15:52 02/06/20 15:52 Vital Signs Reviewed: Yes Appearance: Positive: Well-Appearing Skin: Positive: Warm Head/Face: Positive: Normal Head/Face Inspection Eyes: Positive: Normal Neck: Positive: Supple Respiratory/Lung Sounds: Positive: Clear to Auscultation Cardiovascular: Positive: Normal Abdomen Description: Positive: Nontender Musculoskeletal: Positive: Normal Neurological: Positive: Normal Psychiatric: Positive: Normal AVPU Assessment: Alert - Downey Coma Scale Best Eye Response: 4 - Spontaneous Best Motor Response: 6 - Obeys Commands Best Verbal Response: 5 - Oriented Coma Scale Total: 15 Procedures - Sedation Patient Received Moderate/Deep Sedation with Procedure: No Diagnostics - Vital Signs Vital Signs Temp Pulse Resp BP Pulse Ox 02/06/20 15:52 98.8 F 63 16 140/88 98 - Laboratory Lab Results: Lab Results 02/06/20 02/06/20 Range/Units 17:13 17:13 WBC 7.2 (3.5-10.8) 10^3/uL RBC 3.97 (3.70-4.87) 10^6 /uL Hgb 12.3 (12.0-16.0) g/dL Hct 36 (35-47) % MCV 90 (80-97) fL MCH 31 (27-31) pg MCHC 34 (31-36) g/dL RDW 13 (10-15) % Plt Count 201 (150-450) 10^3/uL MPV 9.4 (7.4-10.4) fL Neut % (Auto) 62.0 % Lymph % (Auto) 29.0 % [place]bour % (Auto) 7.1 % Eos % (Auto) 1.2 % Baso % (Auto) 0.7 % Absolute Neuts (auto) 4.5 (1.5-7.7) 10^3/ul Absolute Lymphs (auto) 2.1 (1.0-4.8) 10^3/ul Absolute Monos (auto) 0.5 (0-0.8) 10^3/ul Absolute Eos (auto) 0.1 (0-0.6) 10^3/ul Absolute Basos (auto) 0.1 (0-0.2) 10^3/ul Absolute Nucleated RBC 0.0 10^3/ul Nucleated RBC % 0.0 Sodium 138 (135-145) mmol/L Potassium 3.8 (3.5-5.0) mmol/L Chloride 103 (101-111) mmol/L Carbon Dioxide 28 (22-32) mmol/L Anion Gap 7 (2-11) mmol/L BUN 21 (6-24) mg/dL Creatinine 1.01 H (0.51-0.95) mg/dL Est GFR ( Amer) 71.7 (>60) Est GFR (Non-Af Amer) 59.3 (>60) BUN/Creatinine Ratio 20.8 H (8-20) Glucose 92 (70-100) mg/dL Calcium 9.2 (8.6-10.3) mg/dL Total Bilirubin 0.30 (0.2-1.0) mg/dL AST 15 (13-39) U/L ALT 12 (7-52) U/L Alkaline Phosphatase 55 (34-104) U/L Troponin I 0.01 (<0.03) ng/mL C-Reactive Protein Pending Total Protein 7.1 (6.4-8.9) g/dL Albumin 3.8 (3.2-5.2) g/dL Globulin 3.3 (2-4) g/dL Albumin/Globulin Ratio 1.2 (1-3) Lipase Pending TSH Pending Beta HCG, Quant < 0.60 mIU/mL Result Diagrams: 02/06/20 17:13 02/06/20 17:13 Lab Statement: Any lab studies that have been ordered have been reviewed, and results considered in the medical decision making process. Chest Pain Course/Dx - Course Course Of Treatment: Patient complains of sudden onset chest tightness/pressure starting at 6 AM this morning with associated exertional shortness of breath through the day. Seen at urgent care and sent to the ED for further evaluation. Patient is a regular runner though she has not run for 3 weeks. Denies prior history of same symptoms. Chest pain described as substernal, constant tightness since 6 AM with intermittent episodes of sharp pain lasting seconds, at worst 6/10, currently 4/10. States pain is also worse with eating, and radiates to her back between her shoulder blades. Denies radiation to arms or neck or jaw. Denies trauma, fever, cough, sore throat, and/V/D, abdominal pain, change in urine, change in BM. Medical history is none. Patient had recent physical without blood work. No physical prior for 2 years. Nonsmoker. Positive family cardiac history, mother had UT at 58. Taking OCP. Denies prior history of blood clots, recent surgery or trauma, unilateral leg pain, hemoptysis, cancer. Did travel from [place] to on 01/12. Vital signs within normal limits. Labs unremarkable. D-dimer negative. Chest x-ray unremarkable. Patient ambulated around the ED with pulse ox, O2 sats remained at 97%. EKG sinus rhythm, heart rate of 63, normal P axis. Patient states she feels better. - Diagnoses Provider Diagnoses: Atypical chest pain Discharge ED - Sign-Out/Discharge Documenting (check all that apply): Patient Departure - Discharge Plan Condition: Stable Disposition: HOME Patient Education Materials: Chest Pain (ED) Referrals: Kirstie Lovelace MD [Primary Care Provider] - Additional Instructions: Take ibuprofen 600 mg every 6 hours for 3 days. Follow-up with primary care. Return to the ED for any new or worsening symptoms. - Billing Disposition and Condition Condition: STABLE Disposition: Home - Attestation Statements Provider Attestation: I was available for consult. This patient was seen by the HUM[facility]O. The patient was not presented to, seen by, or examined by me. Jesús Keller MD
[2020-02-06 18:32] LABS: C Reactive Protein 7.02 mg/L (<8.01)
[2020-02-06 18:45] LABS: TSH (Thyroid Stimulating Horm) 2.07 mcIU/mL (0.34-5.60)
[2020-02-06 18:57] LABS: Urine Appearance Clear; Urine Bilirubin Negative (Negative); Urine Blood Negative (Negative); Urine Color Yellow; Urine Glucose Negative (Negative); Urine Ketones Negative (Negative); Urine Nitrite Negative (Negative); Urine Protein Negative (Negative); Urine Specific Gravity 1.017 (1.010-1.030); Urine Urobilinogen Negative (Negative)
[2020-02-06] MEDS ORDERED: Ibuprofen TAB* 600 MG PO ONE (19:45)
[2020-02-06 20:07] VITALS: BP 116/87
== END 2020-02-06 20:07 | disposition home or self-care (01) ==
LOC: ED 15:34
DX: R07.89 Other chest pain (principal); F41.9 Anxiety disorder, unspecified; R06.02 Shortness of breath; M54.9 Dorsalgia, unspecified; Z79.3 Long term (current) use of hormonal contraceptives; Z82.49 Family history of ischemic heart disease and other diseases of the circulatory system; Z88.2 Allergy status to sulfonamides
CPT/HCPCS: 36415; 71046; 80053; 81003; 83690; 83880; 84443; 84484; 84702; 85025; 85379; 86140; 93005; 99282; A9270-GY